=== PATIENT | male | born 1960 | race Caucasian/White ===

== ENCOUNTER 2024-02-07 08:08 | Emergency (ER) | payer BC, SELFPAY ==
--- NOTE | 2024-02-07 08:15 | ED.EYEPROB ---
HPI - Eye Problem General Chief complaint: Eye Problems Stated complaint: left eye red, lump Time Seen by Provider: 02/07/24 08:21 Source: patient and RN notes reviewed Mode of arrival: ambulatory Limitations: no limitations History of Present Illness HPI Narrative: 63-year-old male presents with concern for a bump inside his left eyelid. He reports a few days ago he had a stye in the lower outer eyelid that drained and is resolved and then this bump up. . Reports he has had watery eyes. He denies vision changes or pain. Reports it itches. chief complaint: other (Bump) Related Data Allergies Allergy/AdvReac Type Severity Reaction Status Date / Time No Known Allergies Allergy Verified 02/07/24 08:24 Review of Systems Review of Systems: CONSTITUTIONAL: Denies malaise, chills, sweats, or fever. EYES: Denies visual changes. Reports watery discharge, bump inside of left lower eyelid ENT: Denies rhinorrhea, congestion, sinus pain, otalgia or sore throat. SKIN: Denies rash or itching. NEUROLOGIC: Denies numbness, weakness, or headache. PSYCHIATRIC: Denies anxiety or depression. All systems reviewed & are unremarkable except as noted in HPI and below PMFSH Comments At time of signature, agree with nursing past medical, surgical, social and family history. There is no relevant family history pertinent to the presenting complaint Exam Narrative: GENERAL: Well-appearing, well-nourished, and in no acute distress. HEAD: Normocephalic, atraumatic. EYES: PERRLA, sclera clear, and EOMI. No nystagmus. Left conjunctivae injected with hordeolum noted to the inner lid, sclera clear. No periorbital edema noted ENT: Nares clear, turbinates pink, no rhinorrhea or epistaxis. Mucous membranes moist. TM pearly powell with sharp light reflex bilaterally; no tragal tenderness. NECK: Supple. CHEST: No respiratory distress. Speaks in full sentences. HEART: Regular rate and rhythm. SKIN: Warm, dry, no visible rash. NEURO: Alert and oriented x3. PSYCH: Normal mood and affect Course Course Emergency Course: Patient is aware of diagnosis, understands and agrees to treatment plan. Anticipatory guidance given. Patient agrees to follow-up as directed and is aware of reasons to seek care at the emergency department. Portions of this record may have been created with voice recognition software Level of Care: Express Care Visit Vital Signs Vital signs: Reviewed. MDM - Eye Problem MDM Narrative Medical decision making narrative: Consideration of the following conditions may be warranted for the presenting problem, they are not final diagnoses: Bacterial conjunctivitis, allergic conjunctivitis, viral conjunctivitis, foreign body, blepharitis, chalazion, hordeolum, corneal abrasion, preseptal cellulitis, orbital cellulitis. No evidence of proptosis, ophthalmoplegia, vision loss, pain with eye movement. Exam findings show no acute concerns or changes; patient is non-toxic appearing and is in no distress. Patient is appropriate for outpatient treatment and follow-up. Critical Care Time Critical Care Time Critical Care Time: No Discharge Plan Discharge Clinical Impression: Hordeolum internum of lower eyelid Patient Disposition: Home, Self-Care Condition: Stable Instructions: Emanuel (ED) Additional Instructions: Do not touch or rub your eye. Use a warm washcloth on your eye throughout the day Use eyedrops as directed You may take Tylenol or ibuprofen for pain Follow-[facility] with PCP or [facility] if condition is not improving in 2-3days. Go to the emergency room if you have pain behind your eye, pressure behind your eye, difficulty seeing, or other severe symptoms Prescriptions: New polymyxin B sulf-trimethoprim 10,000 unit- 1 mg/mL drops 1 drp LEFT EYE Q3H 7 Days Qty: 10 0RF Rx Instructions: while awake; do not exceed 6 doses in 24 hours Follow-up/Referrals: Per
[2024-02-07 08:21] VITALS: BP 127/67; PULSE 84; RESP 16; TEMP 36.4; O2SAT 99
== END 2024-02-07 08:42 | disposition home or self-care (01) ==
PROVIDERS: Emergency Provider Nurse Practitioner; PCP Internal Medicine
DX: H00.025 Hordeolum internum left lower eyelid (principal); E78.00 Pure hypercholesterolemia, unspecified; I10 Essential (primary) hypertension; N40.0 Benign prostatic hyperplasia without lower urinary tract symptoms; F41.9 Anxiety disorder, unspecified
CPT/HCPCS: 99213; G0463

== ENCOUNTER 2025-02-13 08:05 | Emergency (ER) | payer BC, SELFPAY ==
--- NOTE | ~2025-02-13 | XR_ITS ---
Right Knee Technique: AP, lateral, and oblique views were obtained. Clinical History: Pain Findings: No fracture or dislocation is seen. Osseous alignment is anatomic. Joint spaces are preserv ed without degenerative or erosive change. Soft tissues are unremarkable. No joint effusion is seen. Impression: Unremarkable right knee radiographs. Reviewed, dictated and finalized at location . Impression: Unremarkable right knee radiographs.
--- NOTE | 2025-02-13 08:06 | ED_ITS ---
HPI - Extremity Injury (Lower) General Chief Complaint: Extremity Injury, Lower Stated Complaint: Right Knee Pain and Swelling Time Seen by Provider: 02/13/25 08:06 Source: patient Mode of arrival: ambulatory Limitations: no limitations History of Present Illness HPI Narrative: Salo is a 64-year-old male patient presenting to the clinic today with complaints of right knee pain and swelling x 1 week. He reports no known injury. Has pain to the anterior knee only when he is walking and going up and down steps. No history of gout but states he does have osteoarthritis. States the area is nontender to palpation and there is no pain when he has not actively moving his knee. Has been taking ibuprofen without relief. 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 Related Data Home Medications ?Medication ?Instructions ?Recorded ?Confirmed ?Last Taken ?Type atorvastatin 10 mg tablet 10 mg PO DAILY 02/07/24 02/07/24 Unknown History buspirone 15 mg tablet 15 mg PO BID 02/07/24 02/07/24 Unknown History finasteride 5 mg tablet 5 mg PO DAILY 02/07/24 02/07/24 Unknown History lisinopril 20 mg tablet 20 mg PO DAILY 02/07/24 02/07/24 Unknown History tamsulosin 0.4 mg capsule 0.4 mg PO DAILY 02/07/24 02/07/24 Unknown History tramadol 50 mg tablet 50 mg PO BID 02/07/24 02/07/24 Unknown History lorazepam 0.5 mg tablet mg 02/13/25 Unknown History Allergies Allergy/AdvReac Type Severity Reaction Status Date / Time No Known Allergies Allergy Verified 02/13/25 08:18 Review of Systems Review of Systems: Pertinent positives per HPI. Patient denies any fever, chills, rash, headache, visual changes, dizziness, cough, runny nose, sore throat, shortness of breath, chest pain, palpitations, nausea, vomiting, diarrhea, constipation, abdominal pain, or any urinary issues. PMFSH Comments At the time of my signature, I reviewed and agree with the nursing past medical, surgical, social, and family history. There is no relevant family history pertinent to the patient complaint. Exam Narrative: General: Well-developed, well nourished, in no apparent distress Head: Normocephalic, atraumatic. Cardio: Regular rate and rhythm, s1 and s2 normal, no murmur appreciated. Resp: Clear to auscultation bilaterally, no rhonchi, rales, wheezing or rubs. Musculoskeletal: No deformity, non-tender to palpation, grossly normal range of motion, pain to anterior knee/patella with ambulation, muscle strength strong and equal, peripheral pulse strong, no edema, no cyanosis, normal gait and station Course Course Emergency Course: Portions of this record may have been created with voice recognition software. Level of Care: Express Care Visit Vital Signs Vital signs: Vital Signs Temperature 36.4 C 02/13/25 08:13 Pulse Rate 89 02/13/25 08:13 Respiratory Rate 20 02/13/25 08:13 Blood Pressure 141/72 H 02/13/25 08:13 Pulse Oximetry 98 02/13/25 08:13 Oxygen Delivery Room Air 02/13/25 08:13 Temperature 36.4 C 02/13/25 08:13 Pulse Rate 89 02/13/25 08:13 Respiratory Rate 20 02/13/25 08:13 Blood Pressure 141/72 H 02/13/25 08:13 Pulse Oximetry 98 02/13/25 08:13 Oxygen Delivery Room Air 02/13/25 08:13 Vital signs reviewed MDM - Extremity Injury (Lower) MDM Narrative Medical decision making narrative: At the time of visit patient is resting comfortably on the exam table. Patient appears to be nontoxic. Diagnostics: X-ray of the right knee was performed and was negative for any sign of fracture or malalignment. Plan: I suspect patient has patellofemoral syndrome. Will place on Medrol dose pack as Ibuprofen has not been helping, RICE, and follow up with Ortho if symptoms persist. Supportive measures were discussed with the patient and they voiced understanding discharge instructions and agrees to treatment plan. Return precautions reviewed Differential Diagnosis Differential diagnosis: Likely acute internal derangement of knee (Gout, osteoarthritis, knee sprain, patellofemoral syndrome, montelongo cyst, meniscus injury, patella fracture) Imaging Data Radiologist's impression: ITS Impressions Knee X-Ray 02/13/25 08:31 Impression: Unremarkable right knee radiographs. Discharge Plan Discharge Clinical Impression: Patellofemoral pain syndrome Qualifiers: Laterality: right Qualified Code(s): M22.2X1 - Patellofemoral disorders, right knee Patient Disposition: Home Condition: Stable Instructions: Antibiotic Form, Patellofemoral Pain Syndrome (ED), Patellofemoral Pain Syndrome Exercises (ED) Additional Instructions: X-rays negative for any sign of fracture or malalignment of the right knee Rest, ice, elevate, and wear perla wrap as directed Take Medrol Dosepak as prescribed Tylenol/motrin for pain as discussed. Gradually bear weight Perform knee exercises as directed May apply blue emu, lidocaine, or Aspercreme to the affected area to help alleviate pain No running, climbing, or sports until healed. Follow up with your PCP if symptoms persist more than 1 week. Follow-up with ortho in 1 week if symptoms persist Patient Language: [place] Prescriptions: New methylprednisolone [Medrol (Matthew)] 4 mg tablets,dose pack See Rx Instructions PO .COMPLEX Qty: 21 0RF Rx Instructions: orally per package directions No Action lorazepam 0.5 mg tablet atorvastatin 10 mg tablet 10 mg PO DAILY lisinopril 20 mg tablet 20 mg PO DAILY tramadol 50 mg tablet 50 mg PO BID tamsulosin 0.4 mg capsule 0.4 mg PO DAILY finasteride 5 mg tablet 5 mg PO DAILY buspirone 15 mg tablet 15 mg PO BID Follow-up/Referrals: Murali,Dillan Rosen MD [Primary Care Provider] - Arsh Sim MD [Physician] - 1 Week (Acute right knee pain-x-rays negative for any fracture or malalignment. Suspect patellofemoral syndrome) Stand Alone Forms: Work/School Release IP Time of Disposition: 08:35 Quality NIHSS Nursing Documentation ED NIHSS nursing documentation: reviewed/agree
[2025-02-13 08:13] VITALS: BP 141/72; PULSE 89; RESP 20; TEMP 36.4; O2SAT 98
== END 2025-02-13 08:44 | disposition home or self-care (01) ==
PROVIDERS: Emergency Provider Nurse Practitioner Family; PCP Internal Medicine
DX: M22.2X1 Patellofemoral disorders, right knee (principal); Z79.899 Other long term (current) drug therapy
CPT/HCPCS: 73564; 99213; G0463